=== PATIENT | female | born 1990 | race Hispanic/Latino ===

== ENCOUNTER 2017-04-06 04:21 | Emergency (ER) | payer MEDICAID ==
[~2017-04-06 04:21] MED LIST: birth control PO
[2017-04-06 04:46] LABS: APPEARANCE,URINE Clear (CLEAR); BILIRUBIN,URINE Negative (NEGATIVE); COLOR,URINE Yellow (YELLOW); GLUCOSE, URINE (UA) Negative (NEGATIVE); KETONES,URINE Negative (NEGATIVE); LEUKOCYTE ESTERASE ,URINE Negative (NEGATIVE); NITRATE,URINE Negative (NEGATIVE); OCCULT BLOOD,URINE Small (NEGATIVE); PH,URINE 5.5 (5.0-8.0); PROTEIN,URINE Negative (NEGATIVE)
[2017-04-06 04:52] LABS: BACTERIA,URINE None Seen /HPF (None Seen); MUCUS,URINE Few LPF (None Seen); SQUAMOUS EPITHELIAL CELL,UR Few /LPF (0-2); WBC,URINE None Seen /HPF (0-1)
[2017-04-06 04:54] LABS: EOSINOPHILS % (AUTO) 1.4 % (0.0-8.0); HEMATOCRIT 40.8 % (36-48); LYMPHOCYTES % (AUTO) 44.9 % (21.0-51.0); MEAN CORPUSCULAR HGB CONC 34.4 g/dL (32.0-36.0); MONOCYTES % (AUTO) 7.6 % (3.0-13.0); NEUTROPHILS % (AUTO) 45.1 % (40.0-77.0); PLATELET COUNT (AUTO) 359 K/uL (130-400); RED BLOOD CELL COUNT(AUTO) 4.54 MIL/uL (4.00-5.50); RED CELL DISTRIBUTION WIDTH 13.3 % (11.0-15.5); WHITE BLOOD COUNT (AUTO) 10.3 K/uL (4.8-10.8)
[2017-04-06 05:03] LABS: CREATININE 0.7 mg/dL (0.5-1.5); POTASSIUM 3.7 mmol/L (3.5-5.1)
[2017-04-06 05:08] LABS: ALBUMIN 3.4 g/dL (3.5-5.0); BILIRUBIN,TOTAL 0.2 mg/dL (0.2-1.0); TOTAL PROTEIN, SERUM 7.5 g/dL (6.0-8.3)
== END 2017-04-06 05:38 | disposition home or self-care (01) ==
LOC: EDH 04:21
DX: R10.33 Periumbilical pain (principal)
CPT/HCPCS: 36415; 80053; 81001; 81025; 83690; 85025

== ENCOUNTER 2018-04-03 21:04 | Emergency (ER) | payer MEDICAID, OTHER | END 2018-04-03 21:25 | disposition home or self-care (01) | LOC: EDH 21:04 | DX: J06.9 Acute upper respiratory infection, unspecified (principal) | CPT/HCPCS: 99281 ==

== ENCOUNTER 2018-11-30 08:29 | Emergency (ER) | payer MEDICAID ==
[2018-11-30 09:18] LABS: APPEARANCE,URINE Cloudy (CLEAR); BILIRUBIN,URINE Negative (NEGATIVE); COLOR,URINE Yellow (YELLOW); GLUCOSE, URINE (UA) Negative (NEGATIVE); KETONES,URINE Negative (NEGATIVE); LEUKOCYTE ESTERASE ,URINE Negative (NEGATIVE); NITRATE,URINE Negative (NEGATIVE); OCCULT BLOOD,URINE Negative (NEGATIVE); PH,URINE 6.5 (5.0-8.0); PROTEIN,URINE Negative (NEGATIVE); UROBILINOGEN,URINE 0.2 mg/dL (0.2-1.0)
[2018-11-30 09:30] LABS: BACTERIA,URINE Moderate /HPF (None Seen); RBC,URINE 0-1 /HPF (0-1); WBC,URINE 0-1 /HPF (0-1)
[2018-11-30 09:32] LABS: BASOPHILS % (AUTO) 1.2 % (0.0-5.0); EOSINOPHILS % (AUTO) 0.9 % (0.0-8.0); HEMATOCRIT 41.6 % (36-48); LYMPHOCYTES % (AUTO) 35.4 % (21.0-51.0); MEAN CORPUSCULAR HEMOGLOBIN 31.4 pg (27.0-33.0); MEAN CORPUSCULAR HGB CONC 34.7 g/dL (32.0-36.0); MEAN CORPUSCULAR VOLUME 90.6 fL (79-99); MONOCYTES % (AUTO) 5.7 % (3.0-13.0); NEUTROPHILS % (AUTO) 56.8 % (40.0-77.0); NUCLEATED RED BLOOD CELLS 0.1 % (0.0-0.19); PLATELET COUNT (AUTO) 321 K/uL (130-400); RED CELL DISTRIBUTION WIDTH 12.9 % (11.0-15.5); WHITE BLOOD COUNT (AUTO) 8.1 K/uL (4.8-10.8)
[2018-11-30 09:38] LABS: CREATININE 0.6 mg/dL (0.5-1.5)
[2018-11-30 09:47] LABS: ALBUMIN 3.6 g/dL (3.5-5.0); BILIRUBIN,TOTAL 0.4 mg/dL (0.2-1.0); TOTAL PROTEIN, SERUM 7.7 g/dL (6.0-8.3)
[2018-11-30] MEDS ORDERED: NAPROXEN 500 MG TABLET ONE (10:21)
[2018-11-30] MEDS ORDERED: CEFTRIAXONE SODIUM 500 MG VIAL ONE ×2 (10:49→10:53)
[2018-11-30] MEDS ORDERED: AZITHROMYCIN 250 MG TABLET PO ONE (10:49)
[2018-11-30] MEDS ORDERED: LIDOCAINE HCL-MPF 1% 2ML VIAL ONE (10:53)
== END 2018-11-30 11:10 | disposition home or self-care (01) ==
LOC: EDH 08:29
DX: N91.2 Amenorrhea, unspecified (principal); R10.2 Pelvic and perineal pain; R03.0 Elevated blood-pressure reading, without diagnosis of hypertension
CPT/HCPCS: 36415; 76856; 80053; 81001; 81025; 85025; 87486; 87797; 96372; 99285; J0696 ×2; J3490

== ENCOUNTER 2019-09-21 19:35 | Emergency (ER) | payer MEDICAID ==
[2019-09-21] MEDS ORDERED: ONDANSETRON HCL 4 MG/2 ML VIAL ONE (19:47)
[2019-09-21 20:00] LABS: APPEARANCE,URINE Clear (CLEAR); BILIRUBIN,URINE Negative (NEGATIVE); COLOR,URINE Yellow (YELLOW); GLUCOSE, URINE (UA) Negative (NEGATIVE); KETONES,URINE Negative (NEGATIVE); LEUKOCYTE ESTERASE ,URINE Negative (NEGATIVE); NITRATE,URINE Negative (NEGATIVE); OCCULT BLOOD,URINE Nonhemolyzed Trace (NEGATIVE); PROTEIN,URINE Negative (NEGATIVE); UROBILINOGEN,URINE 0.2 mg/dL (0.2-1.0)
[2019-09-21 20:02] LABS: BASOPHILS % (AUTO) 0.3 % (0.0-5.0); EOSINOPHILS % (AUTO) 0.9 % (0.0-8.0); HEMATOCRIT 42.1 % (36-48); LYMPHOCYTES % (AUTO) 36.5 % (21.0-51.0); MEAN CORPUSCULAR HEMOGLOBIN 30.3 pg (27.0-33.0); MEAN CORPUSCULAR HGB CONC 34.2 g/dL (32.0-36.0); MEAN CORPUSCULAR VOLUME 88.6 fL (79-99); MONOCYTES % (AUTO) 6.5 % (3.0-13.0); NEUTROPHILS % (AUTO) 55.5 % (40.0-77.0); PLATELET COUNT (AUTO) 354 K/uL (130-400); RED BLOOD CELL COUNT(AUTO) 4.75 MIL/uL (4.00-5.50); RED CELL DISTRIBUTION WIDTH 12.5 % (11.0-15.5); WHITE BLOOD COUNT (AUTO) 11.8 K/uL (4.8-10.8)
[2019-09-21 20:03] LABS: HCG,QUAL RESULT NEGATIVE (NEGATIVE)
[2019-09-21 20:12] LABS: CREATININE 0.9 mg/dL (0.5-1.5); POTASSIUM 3.2 mmol/L (3.5-5.1)
[2019-09-21 20:16] LABS: ALBUMIN 3.8 g/dL (3.5-5.0); BILIRUBIN,TOTAL 0.3 mg/dL (0.2-1.0); TOTAL PROTEIN, SERUM 8.1 g/dL (6.0-8.3)
[2019-09-21 20:16] LABS: BACTERIA,URINE Few /HPF (None Seen); SQUAMOUS EPITHELIAL CELL,UR 0-2 /HPF (0-2); WBC,URINE 0-1 /HPF (0-1)
[2019-09-21] MEDS ORDERED: POTASSIUM BICARB/CIT AC 25 MEQ TABLET.EFF ONE (20:19)
[2019-09-21] MEDS ORDERED: LEVOFLOXACIN 500 MG TABLET ONE (22:12)
== END 2019-09-21 22:21 | disposition home or self-care (01) ==
LOC: EDH 19:35
DX: K52.9 Noninfective gastroenteritis and colitis, unspecified (principal)
CPT/HCPCS: 36415; 74176; 80053; 81001; 81025; 83690; 85025; 87088; 96361; 96374; 99284; J2405

== ENCOUNTER 2020-04-24 16:10 | Emergency (ER) | payer MEDICAID ==
[2020-04-24 17:16] LABS: BASOPHILS % (AUTO) 0.8 % (0.0-5.0); EOSINOPHILS % (AUTO) 0.5 % (0.0-8.0); HEMATOCRIT 41.8 % (36-48); LYMPHOCYTES % (AUTO) 36.8 % (21.0-51.0); MEAN CORPUSCULAR HEMOGLOBIN 30.9 pg (27.0-33.0); MEAN CORPUSCULAR VOLUME 91.1 fL (79-99); MONOCYTES % (AUTO) 6.8 % (3.0-13.0); PLATELET COUNT (AUTO) 312 K/uL (130-400); RED BLOOD CELL COUNT(AUTO) 4.59 MIL/uL (4.00-5.50); RED CELL DISTRIBUTION WIDTH 12.9 % (11.0-15.5); WHITE BLOOD COUNT (AUTO) 9.2 K/uL (4.8-10.8)
[2020-04-24] MEDS ORDERED: LIDOCAINE HCL 2% VISCOUS 15 ML UDCUP ONE (17:22)
[2020-04-24] MEDS ORDERED: MAG HYDROX/AL HYDROX/SIMETH ES 30 ML SUSP UDCUP ONE (17:22)
[2020-04-24 17:29] LABS: AMPHET/METH SCREEN,URINE NEGATIVE (NEGATIVE); BARBITURATE SCREEN, URINE NEGATIVE (NEGATIVE); BENZODIAZEPINES SCREEN,URINE NEGATIVE (NEGATIVE); CANNABINOID SCREEN,URINE NEGATIVE (NEGATIVE); COCAINE SCREEN,URINE NEGATIVE (NEGATIVE); OPIATE SCREEN,URINE NEGATIVE (NEGATIVE); PHENCYCLIDINE SCREEN,URINE NEGATIVE (NEGATIVE)
[2020-04-24 17:42] LABS: CREATININE 0.6 mg/dL (0.5-1.5); POTASSIUM 3.5 mmol/L (3.5-5.1)
[2020-04-24 17:47] LABS: ALBUMIN 3.9 g/dL (3.5-5.0); BILIRUBIN,TOTAL 0.4 mg/dL (0.2-1.0); TOTAL PROTEIN, SERUM 7.5 g/dL (6.0-8.3)
== END 2020-04-24 19:01 | disposition home or self-care (01) ==
LOC: EDH 16:10
DX: K29.00 Acute gastritis without bleeding (principal); K20.90 Esophagitis, unspecified without bleeding; Z20.822 Contact with and (suspected) exposure to COVID-19
CPT/HCPCS: 36415; 71045; 80053; 80305; 82607; 82746; 83540; 85025; 87426; 93005; 99285; U0003

== ENCOUNTER 2020-07-14 15:29 | Emergency (ER) | payer MEDICAID ==
[~2020-07-14] VITALS: Ht 162.6 cm; Wt 76.2 kg
[2020-07-14 16:06] LABS: BASOPHILS % (AUTO) 0.3 % (0.0-5.0); EOSINOPHILS % (AUTO) 0.6 % (0.0-8.0); HEMATOCRIT 40.6 % (36-48); LYMPHOCYTES % (AUTO) 27.4 % (21.0-51.0); MEAN CORPUSCULAR HGB CONC 34.2 g/dL (32.0-36.0); MEAN CORPUSCULAR VOLUME 90.4 fL (79-99); MONOCYTES % (AUTO) 3.1 % (3.0-13.0); NEUTROPHILS % (AUTO) 68.3 % (40.0-77.0); PLATELET COUNT (AUTO) 294 K/uL (130-400); RED BLOOD CELL COUNT(AUTO) 4.49 MIL/uL (4.00-5.50); RED CELL DISTRIBUTION WIDTH 12.3 % (11.0-15.5); WHITE BLOOD COUNT (AUTO) 9.2 K/uL (4.8-10.8)
[2020-07-14] MEDS ORDERED: FAMOTIDINE/PF 20 MG/2 ML VIAL IV ONE (16:15)
[2020-07-14] MEDS ORDERED: MORPHINE 2 MG SYG (2MG/1ML) IVP ONE (16:15)
[2020-07-14] MEDS ORDERED: KETOROLAC 30MG VIAL (30MG/ML) IVP ONE (16:15)
[2020-07-14] MEDS ORDERED: LACTATED RINGERS 1000ML 1,000 ML IV ONE (16:15)
[2020-07-14] MEDS ORDERED: ONDANSETRON HCL 4 MG/2 ML VIAL IVP ONE (16:15)
[2020-07-14 16:22] LABS: ALBUMIN 3.6 g/dL (3.5-5.0); BILIRUBIN,TOTAL 0.3 mg/dL (0.2-1.0); CREATININE 0.7 mg/dL (0.5-1.5); TOTAL PROTEIN, SERUM 7.2 g/dL (6.0-8.3)
[2020-07-14 16:24] LABS: POTASSIUM 2.9 mmol/L (3.5-5.1)
[2020-07-14 16:43] LABS: APPEARANCE,URINE Clear (CLEAR); BILIRUBIN,URINE Negative (NEGATIVE); COLOR,URINE Yellow (YELLOW); GLUCOSE, URINE (UA) Negative (NEGATIVE); KETONES,URINE >=80 mg/dL (NEGATIVE); LEUKOCYTE ESTERASE ,URINE Negative (NEGATIVE); NITRATE,URINE Negative (NEGATIVE); OCCULT BLOOD,URINE Negative (NEGATIVE); PH,URINE 6.5 (5.0-8.0); PROTEIN,URINE Negative (NEGATIVE)
[2020-07-14 16:45] LABS: HCG,QUAL RESULT POSITIVE (NEGATIVE)
[2020-07-14 17:11] LABS: RBC,URINE 0-1 /HPF (0-1); WBC,URINE 0-1 /HPF (0-1)
[2020-07-14 17:12] LABS: BACTERIA,URINE Few /HPF (None Seen); MUCUS,URINE Moderate LPF (None Seen); SQUAMOUS EPITHELIAL CELL,UR Few /HPF (0-2)
[2020-07-14] MEDS ORDERED: LIDOCAINE HCL-MPF 1% 2ML VIAL IV SCH (17:15)
[2020-07-14] MEDS ORDERED: HYDROMORPHONE 1MG AMP (1MG/ML) IVP PRN (17:15)
[2020-07-14] MEDS: POTASSIUM CHLORIDE 20MEQ/100ML 100 ML IV SCH ×2 (17:31→18:29)
[2020-07-14] MEDS ORDERED: POTASSIUM BICARB/CIT AC 25 MEQ TABLET.EFF PO SCH ×2 (18:45→19:15)
[2020-07-14 19:30] VITALS: BP 122/78
[2020-07-15] MEDS ORDERED: NICOTINE 14 MG/ 24 HR PATCH TD SCH (09:00)
[2020-07-15] MEDS ORDERED: ACET1TAB25 PO (23:30)
== END 2020-07-14 20:40 | disposition home or self-care (01) ==
LOC: EDH 15:29
DX: O26.611 Liver and biliary tract disorders in pregnancy, first trimester (principal); K80.20 Calculus of gallbladder without cholecystitis without obstruction; O26.891 Other specified pregnancy related conditions, first trimester; O21.9 Vomiting of pregnancy, unspecified; O99.281 Endocrine, nutritional and metabolic diseases complicating pregnancy, first trimester; E87.6 Hypokalemia; Z3A.01 Less than 8 weeks gestation of pregnancy; Z98.84 Bariatric surgery status
CPT/HCPCS: 36415; 76705 ×2; 76801; 80053; 81001; 81003; 81025; 82150; 83690; 84484; 84702; 85025; 96361; 96365; 96366; 96375 ×2; 99285; J1885; J2405; J3480; J3490 ×2; J7120

== ENCOUNTER 2020-07-15 14:44 | Observation (INO) | payer MEDICAID ==
[~2020-07-15] VITALS: Ht 162.6 cm; Wt 67.1 kg
[2020-07-15 15:01] VITALS: BP 126/69
[2020-07-15] MEDS ORDERED: MORPHINE 4 MG SYG IV SCH ×2 (15:15→17:45)
[2020-07-15] MEDS ORDERED: ONDANSETRON 4MG INJ IVP SCH ×2 (15:15→19:30)
[2020-07-15] MEDS ORDERED: LACTATED RINGERS 1000ML 1,000 ML IV SCH (15:15)
[2020-07-15 15:26] LABS: BASOPHILS % (AUTO) 0.3 % (0.0-5.0); EOSINOPHILS % (AUTO) 0.3 % (0.0-8.0); HEMATOCRIT 37.2 % (36-48); LYMPHOCYTES % (AUTO) 24.3 % (21.0-51.0); MEAN CORPUSCULAR HEMOGLOBIN 31.1 pg (27.0-33.0); MEAN CORPUSCULAR HGB CONC 33.6 g/dL (32.0-36.0); MEAN CORPUSCULAR VOLUME 92.5 fL (79-99); MONOCYTES % (AUTO) 7.4 % (3.0-13.0); NEUTROPHILS % (AUTO) 67.4 % (40.0-77.0); PLATELET COUNT (AUTO) 282 K/uL (130-400); RED BLOOD CELL COUNT(AUTO) 4.02 MIL/uL (4.00-5.50); RED CELL DISTRIBUTION WIDTH 12.6 % (11.0-15.5)
[2020-07-15 15:39] LABS: CREATININE 0.7 mg/dL (0.5-1.5); POTASSIUM 3.6 mmol/L (3.5-5.1)
[2020-07-15 16:04] LABS: ALBUMIN 3.5 g/dL (3.5-5.0); BILIRUBIN,TOTAL 0.6 mg/dL (0.2-1.0); TOTAL PROTEIN, SERUM 7.1 g/dL (6.0-8.3)
[2020-07-15 16:23] VITALS: BP 127/82
[2020-07-15] MEDS ORDERED: ONDANSETRON 4MG INJ IV PRN (18:45)
[2020-07-15] MEDS ORDERED: MORPHINE 2 MG SYG IV ONE (19:45)
[2020-07-15 20:01] VITALS: BP 115/66
[2020-07-15] MEDS ORDERED: MORPHINE 2 MG SYG IVP ONE (21:00)
[2020-07-15 22:18] VITALS: BP 112/74
[2020-07-15 23:21] LABS: APPEARANCE,URINE CLEAR (CLEAR); BILIRUBIN,URINE SMALL (NEGATIVE); COLOR,URINE YELLOW (YELLOW); GLUCOSE, URINE (UA) NEGATIVE (NEGATIVE); KETONES,URINE >=80 mg/dL (NEGATIVE); LEUKOCYTE ESTERASE ,URINE NEGATIVE (NEGATIVE); NITRATE,URINE NEGATIVE (NEGATIVE); OCCULT BLOOD,URINE NEGATIVE (NEGATIVE); PROTEIN,URINE NEGATIVE (NEGATIVE)
[2020-07-15] MEDS ORDERED: ACET1TAB25 PO (23:30)
[2020-07-15 23:31] LABS: BACTERIA,URINE None Seen /HPF (None Seen); RBC,URINE None Seen /HPF (0-1); SQUAMOUS EPITHELIAL CELL,UR Moderate /HPF (0-2); WBC,URINE None Seen /HPF (0-1)
[2020-07-16] VITALS (25 sets, daily range): BP systolic 92–131; BP diastolic 48–110
[2020-07-16] MEDS ORDERED: PREN1TAB26 PO (01:17)
[2020-07-16] MEDS ORDERED: PREN1TAB80 PO (01:17)
[2020-07-16] MEDS: MORPHINE 2 MG SYG IVP PRN ×2 (02:30→05:16)
[2020-07-16] MEDS: 0.9%NACL 1000ML 1,000 ML IV SCH ×2 (02:31→19:03)
[2020-07-16 04:06] LABS: BASOPHILS % (AUTO) 0.3 % (0.0-5.0); EOSINOPHILS % (AUTO) 0.3 % (0.0-8.0); HEMATOCRIT 34.5 % (36-48); LYMPHOCYTES % (AUTO) 16.1 % (21.0-51.0); MEAN CORPUSCULAR HEMOGLOBIN 30.9 pg (27.0-33.0); MEAN CORPUSCULAR HGB CONC 33.9 g/dL (32.0-36.0); MONOCYTES % (AUTO) 8.9 % (3.0-13.0); PLATELET COUNT (AUTO) 259 K/uL (130-400); RED BLOOD CELL COUNT(AUTO) 3.79 MIL/uL (4.00-5.50); RED CELL DISTRIBUTION WIDTH 12.4 % (11.0-15.5); WHITE BLOOD COUNT (AUTO) 11.2 K/uL (4.8-10.8)
[2020-07-16 04:20] LABS: CREATININE 0.6 mg/dL (0.5-1.5); POTASSIUM 3.4 mmol/L (3.5-5.1)
[2020-07-16] MEDS ORDERED: MORPHINE 4 MG SYG IM ONE (05:15)
[2020-07-16] MEDS ORDERED: ACETAMINOPHEN 325 MG TAB ONE (10:25)
[2020-07-16 10:50] LABS: INR 1.17 (0.85-1.15); PROTHROMBIN TIME 12.6 SEC (9.6-11.6)
[2020-07-16 10:51] LABS: PARTIAL THROMBOPLASTIN TIME 28.8 SEC (26.3-35.5)
[2020-07-16] MEDS ORDERED: ZOSYN 3.375GM+NS 50ML 50 ML IV ONE (10:58)
[2020-07-16] MEDS: ZOSYN 3.375GM+NS 50ML 50 ML IV SCH ×2 (11:06→19:03)
[2020-07-16] MEDS ORDERED: BUPIVACAINE/PF 0.5% 30ML VIAL ONE (13:49)
[2020-07-16] MEDS ORDERED: LACTATED RINGERS 1000ML 1,000 ML IV ONE (14:00)
[2020-07-16] MEDS ORDERED: LIDOCAINE HCL-MPF 1% 5ML AMP IJ ONE (16:24)
[2020-07-16] MEDS ORDERED: FENTANYL CITRATE PF 50 MCG/1 ML 2ML VIAL ONE (16:24)
[2020-07-16] MEDS ORDERED: PROPOFOL 10 MG/ML 20ML VIAL IV ONE (16:24)
[2020-07-16] MEDS ORDERED: ROCURONIUM 10MG/1ML SYR 10 MG/ML ML ONE (16:24)
[2020-07-16] MEDS ORDERED: MEPERIDINE-PF 25 MG/ML SYG ONE (18:13)
[2020-07-16] MEDS ORDERED: MORPHINE 4 MG SYG IV PRN (19:00)
[2020-07-16] MEDS: SIMETHICONE 80 MG TAB.CHEW PO PRN (20:50)
[2020-07-16] MEDS: ACETAMINOPHEN WITH CODEINE 1 TAB TAB PO PRN (23:42)
[2020-07-17] MEDS: 0.9%NACL 1000ML 1,000 ML IV SCH ×3 (00:45→16:15)
[2020-07-17] MEDS: ACETAMINOPHEN 325 MG TAB PO PRN ×2 (01:45→16:09)
[2020-07-17] MEDS: SIMETHICONE 80 MG TAB.CHEW PO PRN ×4 (02:59→21:40)
[2020-07-17 03:02] VITALS: BP 115/75
[2020-07-17 05:29] LABS: BASOPHILS % (AUTO) 0.3 % (0.0-5.0); EOSINOPHILS % (AUTO) 0.2 % (0.0-8.0); HEMATOCRIT 35.2 % (36-48); LYMPHOCYTES % (AUTO) 21.1 % (21.0-51.0); MEAN CORPUSCULAR HEMOGLOBIN 30.9 pg (27.0-33.0); MEAN CORPUSCULAR HGB CONC 33.8 g/dL (32.0-36.0); MEAN CORPUSCULAR VOLUME 91.4 fL (79-99); MONOCYTES % (AUTO) 7.6 % (3.0-13.0); NEUTROPHILS % (AUTO) 70.4 % (40.0-77.0); PLATELET COUNT (AUTO) 284 K/uL (130-400); RED BLOOD CELL COUNT(AUTO) 3.85 MIL/uL (4.00-5.50); RED CELL DISTRIBUTION WIDTH 12.3 % (11.0-15.5); WHITE BLOOD COUNT (AUTO) 10.7 K/uL (4.8-10.8)
[2020-07-17] MEDS: ZOSYN 3.375GM+NS 50ML 50 ML IV SCH ×3 (05:47→21:13)
[2020-07-17 06:07] LABS: CREATININE 0.6 mg/dL (0.5-1.5); POTASSIUM 3.6 mmol/L (3.5-5.1)
[2020-07-17] MEDS ORDERED: MAG/ALUM/SIMETH 30 ML UDCUP PO PRN (06:15)
[2020-07-17] MEDS: ACETAMINOPHEN WITH CODEINE 1 TAB TAB PO PRN ×2 (06:31→22:05)
[2020-07-17 07:17] VITALS: BP 115/73
[2020-07-17] MEDS: FAMOTIDINE 20MG TAB PO SCH (09:22)
[2020-07-17 11:26] VITALS: BP 108/64
[2020-07-17 16:28] VITALS: BP 119/73
[2020-07-17 20:00] VITALS: BP 110/68
[2020-07-17 23:33] VITALS: BP 105/68
[2020-07-18] VITALS (7 sets, daily range): BP systolic 103–111; BP diastolic 63–73
[2020-07-18] MEDS: ZOSYN 3.375GM+NS 50ML 50 ML IV SCH ×2 (05:09→12:10)
[2020-07-18] MEDS: FAMOTIDINE 20MG TAB PO SCH (08:42)
[2020-07-18] MEDS: SIMETHICONE 80 MG TAB.CHEW PO PRN (08:42)
[2020-07-18] MEDS: ACETAMINOPHEN WITH CODEINE 1 TAB TAB PO PRN (08:56)
[2020-08-27] MEDS ORDERED: PREN1TAB63 PO (16:03)
== END 2020-07-18 18:45 | disposition home or self-care (01) ==
LOC: EDH 14:44 → EDHIP 14:45 → WSH 22:12
PROVIDERS: ADMIT Family Medicine; ATTEND Family Medicine
DX: K35.80 Unspecified acute appendicitis (principal); O26.611 Liver and biliary tract disorders in pregnancy, first trimester; O99.611 Diseases of the digestive system complicating pregnancy, first trimester; O99.841 Bariatric surgery status complicating pregnancy, first trimester; K80.20 Calculus of gallbladder without cholecystitis without obstruction; Z3A.01 Less than 8 weeks gestation of pregnancy
CPT/HCPCS: 36415 ×3; 44970; 74181 ×2; 80048 ×2; 80053; 81001; 84702 ×3; 85025 ×3; 85610; 85730; 86850; 86900; 86901; 88304; 96361 ×4; 96365; 96366 ×3; 96375; 96376 ×2; 99284; A4222; A4223; A4649 ×7; A6206; A6207; C1769 ×3; G0378 ×69; J2175; J2270 ×2; J2405 ×2; J2543 ×7; J3010; J3490 ×2; J7030 ×3; J7120 ×3; S0020; J2704

== ENCOUNTER 2020-07-24 14:48 | Emergency (ER) | payer MEDICAID ==
[~2020-07-24] VITALS: Ht 162.6 cm; Wt 65.3 kg
[~2020-07-24 14:48] MED LIST changes: +PREN1TAB26 PO; +PREN1TAB80 PO; -birth control PO
[2020-07-24] MEDS ORDERED: ONDANSETRON 4MG INJ ONE (15:42)
[2020-07-24] MEDS ORDERED: NACL 0.9% 1000ML 1,000 ML IV ONE (15:43)
[2020-07-24] MEDS ORDERED: ONDANSETRON 4MG INJ IVP ONE (15:45)
[2020-07-24] MEDS ORDERED: ACETAMINOPHEN 325 MG TAB PO ONE (15:45)
[2020-07-24 16:01] LABS: BASOPHILS % (AUTO) 0.6 % (0.0-5.0); EOSINOPHILS % (AUTO) 0.7 % (0.0-8.0); HEMATOCRIT 38.8 % (36-48); LYMPHOCYTES % (AUTO) 36.9 % (21.0-51.0); MEAN CORPUSCULAR HEMOGLOBIN 30.7 pg (27.0-33.0); MEAN CORPUSCULAR VOLUME 90.2 fL (79-99); MONOCYTES % (AUTO) 6.2 % (3.0-13.0); NEUTROPHILS % (AUTO) 55.3 % (40.0-77.0); PLATELET COUNT (AUTO) 447 K/uL (130-400); RED CELL DISTRIBUTION WIDTH 12.6 % (11.0-15.5); WHITE BLOOD COUNT (AUTO) 8.9 K/uL (4.8-10.8)
[2020-07-24 16:12] LABS: CREATININE 0.6 mg/dL (0.5-1.5); POTASSIUM 3.5 mmol/L (3.5-5.1)
[2020-07-24 16:38] LABS: ALBUMIN 3.7 g/dL (3.5-5.0); BILIRUBIN,TOTAL 0.3 mg/dL (0.2-1.0); TOTAL PROTEIN, SERUM 7.9 g/dL (6.0-8.3)
[2020-07-24 17:48] LABS: APPEARANCE,URINE Clear (CLEAR); BILIRUBIN,URINE Negative (NEGATIVE); COLOR,URINE Dark Yellow (YELLOW); GLUCOSE, URINE (UA) Negative (NEGATIVE); KETONES,URINE 15 mg/dL (NEGATIVE); LEUKOCYTE ESTERASE ,URINE Negative (NEGATIVE); NITRATE,URINE Negative (NEGATIVE); OCCULT BLOOD,URINE Negative (NEGATIVE); PROTEIN,URINE Negative (NEGATIVE)
[2020-07-24 17:53] LABS: BACTERIA,URINE Few /HPF (None Seen); MUCUS,URINE Moderate LPF (None Seen); RBC,URINE 0-1 /HPF (0-1); WBC,URINE 0-1 /HPF (0-1)
[2020-07-24 17:54] LABS: SQUAMOUS EPITHELIAL CELL,UR Few /HPF (0-2)
[2020-07-24] MEDS ORDERED: CEFTRIAXONE 1G VIAL IVP STA (18:00)
[2020-07-24] MEDS ORDERED: ONDA4TAB4 PO (18:11)
[2020-07-24] MEDS ORDERED: CEPH500B PO (18:11)
[2020-07-24] MEDS ORDERED: 0.9%NACL 100ML 100 ML ONE (18:18)
[2020-07-24 19:41] VITALS: BP 117/70
== END 2020-07-24 19:46 | disposition home or self-care (01) ==
LOC: EDH 14:48
DX: O23.41 Unspecified infection of urinary tract in pregnancy, first trimester (principal); O26.891 Other specified pregnancy related conditions, first trimester; R10.9 Unspecified abdominal pain; R19.7 Diarrhea, unspecified; Z3A.01 Less than 8 weeks gestation of pregnancy; Z79.899 Other long term (current) drug therapy
CPT/HCPCS: 36415; 76801; 80053; 81001; 81003; 83690; 84702; 85025; 96361; 96374; 96375; 99284; J0696; J2405; J7030

== ENCOUNTER 2020-08-28 06:23 | Day surgery (SDC) | payer MEDICAID ==
[2020-08-27 16:01] VITALS: BP 110/63
[2020-08-27 16:04] LABS: BASOPHILS % (AUTO) 0.6 % (0.0-5.0); EOSINOPHILS % (AUTO) 0.7 % (0.0-8.0); HEMATOCRIT 37.3 % (36-48); LYMPHOCYTES % (AUTO) 37.7 % (21.0-51.0); MONOCYTES % (AUTO) 6.7 % (3.0-13.0); NEUTROPHILS % (AUTO) 54.1 % (40.0-77.0); PLATELET COUNT (AUTO) 305 K/uL (130-400); RED CELL DISTRIBUTION WIDTH 12.6 % (11.0-15.5); WHITE BLOOD COUNT (AUTO) 8.4 K/uL (4.8-10.8)
[~2020-08-28] VITALS: Ht 162.6 cm; Wt 64.3 kg
[~2020-08-28 06:23] MED LIST changes: -PREN1TAB26 PO; +PREN1TAB63 PO; -PREN1TAB80 PO
[2020-08-28 06:40] VITALS: BP 111/66
[2020-08-28] MEDS ORDERED: PROPOFOL 10 MG/ML 20ML VIAL IV ONE (06:48)
[2020-08-28] MEDS ORDERED: LIDOCAINE PF 100MG/5ML (2%) SYRINGE 5ML ONE ×2 (06:48→07:39)
[2020-08-28] MEDS ORDERED: ROCURONIUM 10MG/1ML SYR 10 MG/ML ML ONE (06:48)
[2020-08-28] MEDS ORDERED: FENTANYL CITRATE PF 50 MCG/1 ML 2ML VIAL ONE ×2 (06:49)
[2020-08-28] MEDS ORDERED: MIDAZOLAM HCL 1 MG/ML 2ML VIAL ONE (06:49)
[2020-08-28] MEDS ORDERED: OXYTOCIN 10 USP UNITS/ML ONE (07:39)
[2020-08-28] MEDS ORDERED: LACTATED RINGERS 1000ML 1,000 ML IV SCH (08:00)
[2020-08-28] MEDS ORDERED: OXYTOCIN-LR 20 UNITS/1000 ML 1,000 ML IV ONE (08:12)
== END 2020-08-28 11:10 | disposition home or self-care (01) ==
LOC: DAH 06:23 → LDH 11:08 → DAH 11:10
PROVIDERS: ATTEND Specialist
DX: O02.1 Missed abortion (principal); Z20.822 Contact with and (suspected) exposure to COVID-19; E66.9 Obesity, unspecified; Z98.84 Bariatric surgery status; Z90.49 Acquired absence of other specified parts of digestive tract
CPT/HCPCS: 36415; 59820; 84703; 85025; 87635; A4215; A4221; A4222; A4223; A4510; A4600; A4663; A6260; C9803; J2250; J2590 ×2; J3010 ×2; J3490 ×3; J7120; G0378; J2001; J2704

== ENCOUNTER 2020-09-19 09:43 | Emergency (ER) | payer MEDICAID ==
[~2020-09-19] VITALS: Ht 162.6 cm; Wt 62.6 kg
[2020-09-19 09:45] VITALS: BP 120/62
[2020-09-19 10:22] LABS: BASOPHILS % (AUTO) 0.6 % (0.0-5.0); EOSINOPHILS % (AUTO) 1.3 % (0.0-8.0); LYMPHOCYTES % (AUTO) 40.2 % (21.0-51.0); MEAN CORPUSCULAR HEMOGLOBIN 30.7 pg (27.0-33.0); MEAN CORPUSCULAR HGB CONC 34.2 g/dL (32.0-36.0); MEAN CORPUSCULAR VOLUME 89.8 fL (79-99); MONOCYTES % (AUTO) 6.8 % (3.0-13.0); NEUTROPHILS % (AUTO) 50.9 % (40.0-77.0); PLATELET COUNT (AUTO) 294 K/uL (130-400); RED BLOOD CELL COUNT(AUTO) 4.23 MIL/uL (4.00-5.50); RED CELL DISTRIBUTION WIDTH 13.1 % (11.0-15.5); WHITE BLOOD COUNT (AUTO) 6.3 K/uL (4.8-10.8)
[2020-09-19 10:27] LABS: CREATININE 0.6 mg/dL (0.5-1.5)
[2020-09-19 10:31] LABS: ALBUMIN 3.7 g/dL (3.5-5.0); BILIRUBIN,TOTAL 0.4 mg/dL (0.2-1.0); TOTAL PROTEIN, SERUM 7.2 g/dL (6.0-8.3)
[2020-09-19] MEDS ORDERED: SOLU-MEDROL 125MG VIAL ONE (11:07)
[2020-09-19] MEDS ORDERED: KETOROLAC 15MG/ML VIAL (15MG/ML) ONE (11:08)
[2020-09-19] MEDS ORDERED: NAPR-1023 PO (11:12)
[2020-09-19 11:25] VITALS: BP 127/87
[2020-09-19] MEDS ORDERED: KETOROLAC 15MG/ML VIAL (15MG/ML) IV ONE (11:30)
[2020-09-19] MEDS ORDERED: SOLU-MEDROL 125MG VIAL IVP ONE (11:30)
== END 2020-09-19 11:26 | disposition home or self-care (01) ==
LOC: EDH 09:43
DX: M94.0 Chondrocostal junction syndrome [Tietze] (principal); Z79.1 Long term (current) use of non-steroidal anti-inflammatories (NSAID); Z79.52 Long term (current) use of systemic steroids; Z90.49 Acquired absence of other specified parts of digestive tract
CPT/HCPCS: 36415; 80053; 81025; 85025; 96374; 96375; 99284; J1885; J2930

== ENCOUNTER 2020-12-03 20:52 | Emergency (ER) | payer MEDICAID ==
[~2020-12-03] VITALS: Ht 162.6 cm; Wt 56.7 kg
[~2020-12-03 20:52] MED LIST changes: +NAPR-1023 PO
[2020-12-03] MEDS ORDERED: MORPHINE 4 MG SYG ONE (21:36)
[2020-12-03 21:38] LABS: BASOPHILS % (AUTO) 0.5 % (0.0-5.0); EOSINOPHILS % (AUTO) 0.4 % (0.0-8.0); LYMPHOCYTES % (AUTO) 44.5 % (21.0-51.0); MEAN CORPUSCULAR HEMOGLOBIN 30.7 pg (27.0-33.0); MEAN CORPUSCULAR HGB CONC 34.2 g/dL (32.0-36.0); MEAN CORPUSCULAR VOLUME 89.8 fL (79-99); MONOCYTES % (AUTO) 6.1 % (3.0-13.0); NEUTROPHILS % (AUTO) 48.3 % (40.0-77.0); PLATELET COUNT (AUTO) 300 K/uL (130-400); RED BLOOD CELL COUNT(AUTO) 4.23 MIL/uL (4.00-5.50); RED CELL DISTRIBUTION WIDTH 11.9 % (11.0-15.5); WHITE BLOOD COUNT (AUTO) 10.6 K/uL (4.8-10.8)
[2020-12-03 21:46] LABS: APPEARANCE,URINE Clear (CLEAR); BILIRUBIN,URINE Negative (NEGATIVE); COLOR,URINE Yellow (YELLOW); GLUCOSE, URINE (UA) Negative (NEGATIVE); KETONES,URINE 15 mg/dL (NEGATIVE); LEUKOCYTE ESTERASE ,URINE Negative (NEGATIVE); NITRATE,URINE Negative (NEGATIVE); OCCULT BLOOD,URINE Negative (NEGATIVE); PROTEIN,URINE Negative (NEGATIVE)
[2020-12-03 21:55] LABS: CREATININE 0.6 mg/dL (0.5-1.5); POTASSIUM 3.8 mmol/L (3.5-5.1)
[2020-12-03 22:04] LABS: ALBUMIN 3.8 g/dL (3.5-5.0); BILIRUBIN,TOTAL 0.3 mg/dL (0.2-1.0); TOTAL PROTEIN, SERUM 7.4 g/dL (6.0-8.3)
[2020-12-03] MEDS ORDERED: MORPHINE 2 MG SYG IVP ONE (22:30)
[2020-12-03] MEDS ORDERED: PROMETHAZINE HCL 25 MG/ML 1ML AMPULE IM ONE (22:30)
[2020-12-03] MEDS ORDERED: 0.9%NACL 1000ML 1,000 ML IV ONE (22:30)
[2020-12-03 23:15] VITALS: BP 112/78
== END 2020-12-03 23:24 | disposition home or self-care (01) ==
LOC: EDH 20:52
DX: O99.611 Diseases of the digestive system complicating pregnancy, first trimester (principal); A08.4 Viral intestinal infection, unspecified; Z79.1 Long term (current) use of non-steroidal anti-inflammatories (NSAID); Z79.899 Other long term (current) drug therapy; Z90.49 Acquired absence of other specified parts of digestive tract; Z3A.01 Less than 8 weeks gestation of pregnancy
CPT/HCPCS: 36415; 80053; 81003; 83690; 85025; 96361; 96372; 96374; 99284; J2270; J2550; J7030

== ENCOUNTER 2020-12-09 15:07 | Emergency (ER) | payer MEDICAID ==
[~2020-12-09] VITALS: Ht 162.6 cm; Wt 56.7 kg
[2020-12-09 15:52] LABS: APPEARANCE,URINE Clear (CLEAR); BILIRUBIN,URINE Negative (NEGATIVE); COLOR,URINE Yellow (YELLOW); GLUCOSE, URINE (UA) Negative (NEGATIVE); KETONES,URINE Trace mg/dL (NEGATIVE); LEUKOCYTE ESTERASE ,URINE Negative (NEGATIVE); NITRATE,URINE Negative (NEGATIVE); OCCULT BLOOD,URINE Negative (NEGATIVE); PROTEIN,URINE Negative (NEGATIVE); UROBILINOGEN,URINE 0.2 mg/dL (0.2-1.0)
[2020-12-09] MEDS ORDERED: 0.9%NACL 1000ML 1,000 ML IV ONE (16:30)
[2020-12-09 16:42] LABS: BASOPHILS % (AUTO) 0.4 % (0.0-5.0); EOSINOPHILS % (AUTO) 0.1 % (0.0-8.0); HEMATOCRIT 36.9 % (36-48); LYMPHOCYTES % (AUTO) 25.3 % (21.0-51.0); MEAN CORPUSCULAR HEMOGLOBIN 31.1 pg (27.0-33.0); MEAN CORPUSCULAR HGB CONC 34.7 g/dL (32.0-36.0); MEAN CORPUSCULAR VOLUME 89.8 fL (79-99); MONOCYTES % (AUTO) 4.8 % (3.0-13.0); NEUTROPHILS % (AUTO) 69.1 % (40.0-77.0); PLATELET COUNT (AUTO) 300 K/uL (130-400); RED BLOOD CELL COUNT(AUTO) 4.11 MIL/uL (4.00-5.50); RED CELL DISTRIBUTION WIDTH 11.9 % (11.0-15.5); WHITE BLOOD COUNT (AUTO) 9.3 K/uL (4.8-10.8)
[2020-12-09 16:53] LABS: CREATININE 0.6 mg/dL (0.5-1.5); POTASSIUM 3.8 mmol/L (3.5-5.1)
[2020-12-09 16:58] LABS: ALBUMIN 3.7 g/dL (3.5-5.0); BILIRUBIN,TOTAL 0.2 mg/dL (0.2-1.0); TOTAL PROTEIN, SERUM 7.1 g/dL (6.0-8.3)
[2020-12-09 19:27] VITALS: BP 104/66
== END 2020-12-09 19:34 | disposition home or self-care (01) ==
LOC: EDH 15:07
DX: O26.91 Pregnancy related conditions, unspecified, first trimester (principal); R55 Syncope and collapse; R42 Dizziness and giddiness; R10.9 Unspecified abdominal pain; O21.9 Vomiting of pregnancy, unspecified; Z90.49 Acquired absence of other specified parts of digestive tract; Z3A.01 Less than 8 weeks gestation of pregnancy
CPT/HCPCS: 36415; 76801; 80053; 81003; 84702; 85025; 86850; 86900; 86901; 93005; 96360; 99285; J7030

== ENCOUNTER 2021-02-26 15:30 | Emergency (ER) | payer MEDICAID ==
[~2021-02-26] VITALS: Ht 162.6 cm; Wt 54.4 kg
[2021-02-26 15:32] VITALS: BP 112/70
== END 2021-02-26 17:39 | disposition home or self-care (01) ==
LOC: EDH 15:30
DX: Z20.822 Contact with and (suspected) exposure to COVID-19 (principal); Z53.21 Procedure and treatment not carried out due to patient leaving prior to being seen by health care provider
CPT/HCPCS: 87635; 87804 ×2; C9803

== ENCOUNTER 2021-04-18 02:51 | Observation (INO) | payer MEDICAID ==
[~2021-04-18] VITALS: Ht 162.6 cm; Wt 58.5 kg
[2021-04-18 03:37] LABS: APPEARANCE,URINE CLEAR (CLEAR); BILIRUBIN,URINE NEGATIVE (NEGATIVE); COLOR,URINE YELLOW (YELLOW); GLUCOSE, URINE (UA) NEGATIVE (NEGATIVE); KETONES,URINE NEGATIVE (NEGATIVE); LEUKOCYTE ESTERASE ,URINE NEGATIVE (NEGATIVE); NITRATE,URINE NEGATIVE (NEGATIVE); OCCULT BLOOD,URINE NEGATIVE (NEGATIVE); PH,URINE 6.5 (5.0-8.0); PROTEIN,URINE NEGATIVE (NEGATIVE); UROBILINOGEN,URINE 0.2 mg/dL (0.2-1.0)
[2021-04-18 03:45] LABS: AMPHET/METH SCREEN,URINE NEGATIVE (NEGATIVE); BARBITURATE SCREEN, URINE NEGATIVE (NEGATIVE); BENZODIAZEPINES SCREEN,URINE NEGATIVE (NEGATIVE); CANNABINOID SCREEN,URINE NEGATIVE (NEGATIVE); COCAINE SCREEN,URINE NEGATIVE (NEGATIVE); OPIATE SCREEN,URINE NEGATIVE (NEGATIVE); PHENCYCLIDINE SCREEN,URINE NEGATIVE (NEGATIVE)
[2021-04-18] MEDS ORDERED: LACTATED RINGERS 1000ML 1,000 ML IV SCH (04:30)
[2021-04-18] MEDS ORDERED: MORPHINE 2 MG SYG IVP ONE (04:30)
[2021-04-18 06:28] VITALS: BP 87/53
== END 2021-04-18 06:55 | disposition home or self-care (01) ==
LOC: EDH 02:51 → LDH 02:52
PROVIDERS: ADMIT Internal Medicine; ATTEND Internal Medicine
DX: O26.892 Other specified pregnancy related conditions, second trimester (principal); R10.11 Right upper quadrant pain; Z3A.25 25 weeks gestation of pregnancy
CPT/HCPCS: 80305; 81003; 96361; 96374; G0378 ×4; G0379; 96360

== ENCOUNTER 2021-08-09 23:40 | Emergency (ER) | payer MEDICAID ==
[2021-08-10 00:38] LABS: APPEARANCE,URINE Clear (CLEAR); BILIRUBIN,URINE Negative (NEGATIVE); COLOR,URINE Yellow (YELLOW); GLUCOSE, URINE (UA) Negative (NEGATIVE); KETONES,URINE Negative (NEGATIVE); LEUKOCYTE ESTERASE ,URINE Small (NEGATIVE); NITRATE,URINE Negative (NEGATIVE); OCCULT BLOOD,URINE Negative (NEGATIVE); PH,URINE 6.5 (5.0-8.0); PROTEIN,URINE Negative (NEGATIVE); UROBILINOGEN,URINE 0.2 mg/dL (0.2-1.0)
[2021-08-10 00:54] LABS: BACTERIA,URINE Rare /HPF (None Seen); RBC,URINE None Seen /HPF (0-1)
[2021-08-10 00:57] LABS: BASOPHILS % (AUTO) 0.5 % (0.0-5.0); EOSINOPHILS % (AUTO) 0.4 % (0.0-8.0); HEMATOCRIT 36.7 % (36-48); LYMPHOCYTES % (AUTO) 31.8 % (21.0-51.0); MEAN CORPUSCULAR HEMOGLOBIN 30.7 pg (27.0-33.0); MEAN CORPUSCULAR HGB CONC 33.5 g/dL (32.0-36.0); MEAN CORPUSCULAR VOLUME 91.5 fL (79-99); MONOCYTES % (AUTO) 6.2 % (3.0-13.0); NEUTROPHILS % (AUTO) 60.9 % (40.0-77.0); PLATELET COUNT (AUTO) 218 K/uL (130-400); RED BLOOD CELL COUNT(AUTO) 4.01 MIL/uL (4.00-5.50); RED CELL DISTRIBUTION WIDTH 12.1 % (11.0-15.5); WHITE BLOOD COUNT (AUTO) 8.1 K/uL (4.8-10.8)
[2021-08-10 01:10] LABS: CREATININE 0.5 mg/dL (0.5-1.5); POTASSIUM 3.6 mmol/L (3.5-5.1)
[2021-08-10 01:13] LABS: ALBUMIN 3.3 g/dL (3.5-5.0); BILIRUBIN,TOTAL 0.3 mg/dL (0.2-1.0); TOTAL PROTEIN, SERUM 6.4 g/dL (6.0-8.3)
[2021-08-10] MEDS ORDERED: LOPE2CAP PO (04:10)
[2021-08-10 04:18] VITALS: BP 110/78
== END 2021-08-10 04:18 | disposition home or self-care (01) ==
LOC: EDH 23:40
DX: E86.0 Dehydration (principal); R19.7 Diarrhea, unspecified; Z20.822 Contact with and (suspected) exposure to COVID-19; Z79.899 Other long term (current) drug therapy; Z90.89 Acquired absence of other organs; Z98.890 Other specified postprocedural states
CPT/HCPCS: 36415; 80053; 81001; 85025; 87635; 99283; C9803

== ENCOUNTER → 2022-09-09 | Emergency (ER) | payer MEDICAID ==
[~2022-09-09] VITALS: Ht 162.6 cm; Wt 54.4 kg
[~2022-09-09] MED LIST changes: +0.9%NACL 1000ML 1,000 ML IV ONE; +KETOROLAC 15MG/ML VIAL (15MG/ML) IV ONE; +LOPE2CAP PO
[2022-09-09 12:57] VITALS: BP 120/84; PULSE 65; RESP 18
[2022-09-09 13:38] LABS: HCG,QUALITATIVE URINE NEGATIVE (NEGATIVE)
[2022-09-09 13:42] LABS: AMPHET/METH SCREEN,URINE NEGATIVE (NEGATIVE); BARBITURATE SCREEN, URINE NEGATIVE (NEGATIVE); BENZODIAZEPINES SCREEN,URINE NEGATIVE (NEGATIVE); CANNABINOID SCREEN,URINE NEGATIVE (NEGATIVE); COCAINE SCREEN,URINE NEGATIVE (NEGATIVE); OPIATE SCREEN,URINE NEGATIVE (NEGATIVE); PHENCYCLIDINE SCREEN,URINE NEGATIVE (NEGATIVE)
[2022-09-09 13:53] LABS: APPEARANCE,URINE CLEAR (CLEAR); BILIRUBIN,URINE NEGATIVE (NEGATIVE); COLOR,URINE LIGHT-YELLOW (YELLOW); GLUCOSE, URINE (UA) NEGATIVE (NEGATIVE); KETONES,URINE NEGATIVE (NEGATIVE); LEUKOCYTE ESTERASE ,URINE 75 Leu/uL (NEGATIVE); NITRATE,URINE NEGATIVE (NEGATIVE); OCCULT BLOOD,URINE MODERATE (NEGATIVE); PROTEIN,URINE 20 mg/dL (NEGATIVE); UROBILINOGEN,URINE 0.2 mg/dL (0.2-1.0)
[2022-09-09 13:59] LABS: BACTERIA,URINE FEW /HPF (None Seen); MUCUS,URINE MANY LPF (None Seen); RBC,URINE 26-50 /HPF (0-1); SQUAMOUS EPITHELIAL CELL,UR RARE /HPF (0-2)
[2022-09-09 14:12] LABS: BASOPHILS % (AUTO) 1.3 % (0.0-5.0); EOSINOPHILS % (AUTO) 1.3 % (0.0-8.0); HEMATOCRIT 37.2 % (36-48); MEAN CORPUSCULAR HGB CONC 31.5 g/dL (32.0-36.0); MEAN CORPUSCULAR VOLUME 85.7 fL (79-99); MONOCYTES % (AUTO) 6.4 % (3.0-13.0); NEUTROPHILS % (AUTO) 39.8 % (40.0-77.0); PLATELET COUNT (AUTO) 342 K/uL (130-400); RED BLOOD CELL COUNT(AUTO) 4.34 MIL/uL (4.00-5.50); RED CELL DISTRIBUTION WIDTH 13.7 % (11.0-15.5); WHITE BLOOD COUNT (AUTO) 5.5 K/uL (4.8-10.8)
[2022-09-09 14:42] LABS: CREATININE 0.6 mg/dL (0.5-1.5); POTASSIUM 4.3 mmol/L (3.5-5.1)
[2022-09-09 14:44] LABS: ALBUMIN 3.5 g/dL (3.5-5.0); TOTAL PROTEIN, SERUM 7.2 g/dL (6.0-8.3)
== END ==
LOC: EDH 12:55
DX: R10.31 Right lower quadrant pain (principal); Z90.49 Acquired absence of other specified parts of digestive tract
CPT/HCPCS: 36415; 80053; 80305; 81001; 81025; 83605; 83690; 84484; 85025; 87088; 93005

== ENCOUNTER 2024-03-23 22:23 | Emergency (ER) | payer MEDICAID ==
[~2024-03-23] VITALS: Ht 154.9 cm; Wt 50.8 kg
[~2024-03-23 22:23] MED LIST changes: -0.9%NACL 1000ML 1,000 ML IV ONE; -KETOROLAC 15MG/ML VIAL (15MG/ML) IV ONE; -NAPR-1023 PO; +NAPR-1194 PO
--- NOTE | 2024-03-23 23:17 | NUR ---
PT CARE ASSUMED AT THIS TIME
--- NOTE | 2024-03-23 23:25 | ERN ---
ED Note History of Present Illness Stated Complaint: LIP FILLER REACTION Chief Complaint: Other Problems Time Seen by MD: 22:46 Dictation: This is a 33-year-old female who came into the ER for a possible reaction to a lip filler. Patient apparently went to [place] and had a cosmetic procedure with filling of the lips with hyaluronic acid yesterday. Her lips were plump and she sent a picture of her lips to the cosmetic surgeon who was concerned and recommended to be evaluated for a reaction. She denied any itching of the lips, shortness of breath sensation of throat closing up stridor. Temperature 98 pulse 67 respirations 16 blood pressure 143/90 with a pulse oximetry of 100% on room air She has had a history of appy and gastric sleeve surgery in 2020 with significant weight loss Allergies: Coded Allergies: No Known Drug Allergies (Unverified Allergy, Unknown, 11/23/14) Home Meds Active Scripts Loperamide HCl (Loperamide) 2 Mg Capsule, 2 MG PO QID for LOOSE STOOL, #30 CAP Prov:SELWYN QUINONEZ MD 08/10/21 Naproxen (Naproxen) 500 Mg Tablet, 500 MG PO BID PRN for PAIN LEVEL 1 TO 5 for 15 Days, #30 TAB 0 Refills Prov:SELWYN QUINONEZ MD 09/19/20 Reported Medications Vit/Iron Fumarate/FA ( Tablet) 1 Each Tablet, 1 EACH PO HS, TAB 08/27/20 Past Medical History Past Medical History: No Pertinent History, Anemia Surgical History: Appendectomy, Bariatric Surgery Surgical History Other: GASTRIC SLEEVE 2020 Family History: Negative Social History: Negative, Lives with family History: Not Applicable LMP: Mar 07, 2024 : 7 Para: 6 Aborts: 1 Review of System Dictation As described in the history of present illness Constitutional: Negative for fever,chills, and weight loss Eyes: Negative for injury, pain,redness, and discharge ENT: Negative for injury,pain or swelling Cardiovascular: Negative for chest pain, palpitations, and edema Respiratory: Negative for shortness of breath, cough, and wheezing, Abdomen/GI: Negative for abdominal pain, nausea, vomiting, diarrhea, and constipation Back: Negative for injury and pain : Negative for injury, bleeding and discharge MS/Extremity: Negative for injury and deformity Skin: Negative for rash, and discoloration Neuro: Negative for headache, weakness, numbness, tingling, and seizure Psych: Negative for suicide ideation, homicidal ideation, and hallucinations Initial Vital Sign VS Vital Signs Date Time Temp Pulse Resp B/P (MAP) Pulse Ox O2 Delivery O2 Flow Rate FiO2 03/23/24 22:24 98.1 67 16 143/90 100 Room Air 03/23/24 23:26 0 21 Physical Exam Dictation General: awake, alert, NAD Head/Face: Normocephalic, atraumatic Eyes: PERRL, EOMI, vision at baseline ENT: oral cavity clear, TMs clear, no signs of infection lips do not look any swollen than what they normally look after a lip filler there was minimal erythema. Neck: Trachea midline, supple, no nuchal rigidity Cardiovascular: RRR, normal S1/S2, No MRGs, no JVD Respiratory: CTAB, no respiratory distress, No rales or wheezes Abdomen: Soft, non-tender, non-distended, normal bowel sounds, no guarding or rebound. Skin: Warm, dry, normal turgor, no rash MS/Extremity: Pulses equal, no cyanosis, neurovascular intact, FROM Neuro: COAx4, GCS 15, strength 5/5, CN 2-12 intact, normal cerebellar exam, normal gait, Psych: Normal behavior, mood, and affect normal Extremities-trace edema without any palpable cords, Homans sign is negative ED Course ED Course Orders Procedure Category Date Status Time Methylprednisolone PHA 03/24/24 Complete Succ 40mg (Solu-Medro 00:00 Diphenhydramine Hcl PHA 03/24/24 Complete (Benadryl Inj) 00:00 Current Medications Medications (Trade) Dose Ordered Sig/Rosemary Route PRN Reason Start Time Stop Time Status Last Admin Dose Admin Diphenhydramine HCl (BENAdryl INJ) 25 mg ONCE ONCE IM 03/24/24 00:00 03/24/24 00:01 DC 03/23/24 23:46 Methylprednisolone Sodium Succinate (Solu-medROL 40MG) 40 mg ONCE ONCE IM 03/24/24 00:00 03/24/24 00:01 DC 03/23/24 23:45 Vital Signs Date Time Temp Pulse Resp B/P (MAP) Pulse Ox O2 Delivery O2 Flow Rate FiO2 03/24/24 00:20 98.1 60 16 106/75 100 Room Air* 0 21 03/23/24 23:26 98.1 67 16 112/66 100 Room Air* 0 21 03/23/24 22:24 98.1 67 16 143/90 100 Room Air Trial of Benadryl steroid and clinical monitoring. She responded very well and feels much better and also for this reassured. She will follow up with her cosmetic surgeon . Medical Decision Making MDM MDM: Differential diagnosis: Postprocedure inflammatory reaction, true allergic reaction with angioedema Rationale: Tests considered and ordered secondary to shared decision making include: Previous outside records reviewed: Old ER visits. Risk of complication and/or morbidity or mortality of patient management: None Medications-Per medication reconciliation Need for hospitalization: Patient does not meet criteria for hospitalization. Need for emergency major/minor surgery: No There are no social concerns with this patient. Prescription drug management Prescriptions will include symptomatic care Patient's prior external medical records from other ER visits were reviewed by me as indicated. Prior testing and results from previous visits were reviewed. Prior tests were taken into account with medical decision making and resource utilization, independent historian/historians were used to obtain complete medical history. I independently interpreted the test that were performed, results were reviewed by me and considered findings on radiology if ordered. Medical management and examination interpretation discussions were had by me with other qualified healthcare professionals as indicated for the patient's care. Problem List Problem List: (1) Allergic reaction (2) Lip edema DX & DISP Disposition: Discharge Departure Impression: Primary Impression: Allergic reaction Additional Impression: Lip edema Condition: Stable Additional Instructions: Patient and the caregiver have been informed of all the diagnostic tests and the imaging conducted during the today's visit to the emergency room and has verb alized understanding of the results I have personally reviewed and interpreted all diagnostic exams performed here in the ER today as well as the vital signs documented by the nursing staff. The patient is now being discharged to home and should follow up with the primary care physician or the specialist as directed by the ER staff. Follow-up with primary care provider in 1 to 2 days. Take medications as directed here in the emergency room. Okay to continue home medications unless otherwise discussed during your visit in the emergency room today. Return to your nearest emergency room if symptoms worsen or if there is no improvement. Call 911 if you need immediate assistance. Take Tylenol or Motrin [id number] as needed and if no contraindications are present. Increase oral hydration. A wound culture or urine culture was ordered here in the emergency room department please follow-up with primary care provider and advise them to get repeat ports from our facility. If you had any Miguel wrap/splints that were applied here, please do not remove them until you see your primary care or specialty. Patient already has methylprednisolone pack. And she will take [id number] Benadryl 25-50 mg every 6 hours as needed Referrals: KAYLAH MERCADO MD (PCP) ARTEMIO SCHAFER MD Mar 23, 2024 23:25
[2024-03-23] MEDS: Solu-medROL 40MG VIAL IM ONE (23:45)
[2024-03-23] MEDS: DiphenhydrAMINE HCL 50 MG/ML VIAL IM ONE (23:46)
[2024-03-24 00:20] VITALS: BP 106/75; PULSE 60; RESP 16; TEMP 98; O2SAT 100
== END 2024-03-24 00:25 | disposition home or self-care (01) ==
LOC: EDH 22:23
DX: T78.40XA Allergy, unspecified, initial encounter (principal); R60.0 Localized edema; Z90.49 Acquired absence of other specified parts of digestive tract; Z98.84 Bariatric surgery status; X58.XXXA Exposure to other specified factors, initial encounter
CPT/HCPCS: 99284; 96372 ×2; J2919; J1200

== ENCOUNTER 2024-07-19 21:41 | Emergency (ER) | payer BC, MEDICAID ==
[~2024-07-19] VITALS: Ht 162.6 cm; Wt 49.9 kg
[2024-07-19] MEDS: ondanSETRON ODT 4MG TAB SL ONE (21:51)
--- NOTE | 2024-07-19 23:30 | ERN ---
General Chief Complaint: Headache Stated Complaint: HEADACHE, VOMITING Time Seen by MD: 22:38 Source: patient History of Present Illness Initial Comments 33 year old female with a history of gastric bypass surgery she states it when she over eats she does get a headache. This time it feels different in his has been accompanied by nausea and vomiting and diarrhea. She does not think she is . She has an IUD and is menstruating. She is not sure about urinary tract symptoms either. She does say she could be dehydrated but she has not been able to keep anything down because of unremitting emesis. Timing/Duration: 1-3 hours Allergies: Coded Allergies: No Known Drug Allergies (Unverified Allergy, Unknown, 11/23/14) Home Meds Active Scripts Loperamide HCl (Loperamide) 2 Mg Capsule, 2 MG PO QID for LOOSE STOOL, #30 CAP Prov:SELWYN QUINONEZ MD 08/10/21 Naproxen (Naproxen) 500 Mg Tablet, 500 MG PO BID PRN for PAIN LEVEL 1 TO 5 for 15 Days, #30 TAB 0 Refills Prov:SELWYN QUINONEZ MD 09/19/20 Reported Medications Vit/Iron Fumarate/FA ( Tablet) 1 Each Tablet, 1 EACH PO HS, TAB 08/27/20 Past Medical History Past Medical History: No Pertinent History Past Surgical History: Appendectomy, Other Surgical History Other: GASTRIC SLEEVE Family History Family History: Negative Social History Social History: Negative, Lives with family Female( History) History: Not Applicable LMP: Jul 19, 2024 : 7 Para: 6 Aborts: 1 Constitutional: (-) chills, (-) diaphoresis, (-) fever, (-) malaise, (-) weakness, (-) other documentation Respiratory: (-) cough, (-) orthopnea, (-) short of breath, (-) stridor, (-) wheezing, (-) other documentation Cardiovascular: (-) chest pain, (-) edema, (-) palpitations, (-) syncope, (-) dyspnea on exertion, (-) other documentation Gastrointestinal/Abdominal: (+) nausea, (+) vomiting, (+) diarrhea Genitourinary: (-) vaginal discharge, (-) vaginal bleeding, (-) dysuria, (-) frequency, (-) hematuria, (-) pain, (-) other documentation Physical Exam General Appearance: (+) mild distress Orientation: (+) alert, (+) oriented x 3 Head/Face Trauma: No Eye: bilateral eye normal inspection, bilateral eye PERRL, bilateral eye EOMI Ear, Nose, Throat: (+) hearing grossly normal, (+) normal ENT inspection, (+) moist mucous membraine, (+) normal pharynx Neck: (+) normal inspection, (+) supple Respiratory: (+) chest non-tender, (+) lungs clear, (+) well ventilated Heart: (+) regular, (+) no gallop Vascular: (+) no edema Gastrointestinal: (+) soft, (+) non-tender, (+) bowel sound present Results Laboratory and Microbiology Lab and Micro Result Laboratory Tests Test 07/19/24 23:40 White Blood Count 6.1 K/uL (4.8-10.8) Red Blood Count 3.63 MIL/uL (4.00-5.50) L Hemoglobin 8.4 g/dL (12.0-16.0) L Hematocrit 27.4 % (36-48) L Mean Corpuscular Volume 75.5 fL (79-99) L Mean Corpuscular Hemoglobin 23.1 pg (27.0-33.0) L Mean Corpuscular Hemoglobin Concent 30.7 g/dL (32.0-36.0) L Red Cell Distribution Width 15.6 % (11.0-15.5) H Platelet Count 356 K/uL (130-400) Mean Platelet Volume 8.9 fL (7.5-10.5) Immature Granulocyte % (Auto) 0.2 % (0-1) Neutrophils (%) (Auto) 51.8 % (40.0-77.0) Lymphocytes (%) (Auto) 38.8 % (21.0-51.0) Monocytes (%) (Auto) 6.4 % (3.0-13.0) Eosinophils (%) (Auto) 2.1 % (0.0-8.0) Basophils (%) (Auto) 0.7 % (0.0-5.0) Neutrophils # (Auto) 3.1 K/uL (1.8-7.7) Lymphocytes # (Auto) 2.4 K/uL (1.0-4.8) Monocytes # (Auto) 0.4 K/uL (0.1-1.0) Eosinophils # (Auto) 0.13 K/uL (0.00-0.70) Basophils # (Auto) 0.04 K/uL (0.00-0.20) Absolute Immature Granulocyte (auto 0.01 K/uL (0-1) Nucleated Red Blood Cells 0.0 % (0.0-0.19) Sodium Level 137 mmol/L (136-145) Potassium Level 3.8 mmol/L (3.5-5.1) Chloride Level 108 mmol/L (101-111) Carbon Dioxide Level 24 mmol/L (21-32) Blood Urea Nitrogen 11 mg/dL (7-18) Creatinine 0.7 mg/dL (0.5-1.0) Glomerular Filtration Rate Calc 116 mL/min (>90) Random Glucose 103 mg/dL (70-105) Total Calcium 8.6 mg/dL (8.5-10.1) MDM I will start with the usual workup for symptom complex like this, with CBC BMP urine analysis fluid urine . Patient's CBC is normal patient's chemistry panel is normal she feels better now and she would like to go home. I agree with that I trust her when she says she does not have the symptoms of a urinary tract infection. ED Course Orders Procedure Category Date Status Time Ondansetron Odt 4mg PHA 07/19/24 Complete Tab (Zofran 4mg Odt) 22:00 Lactated Ringers PHA 07/19/24 Complete 1000ml (Lactated 23:11 Ketorolac PHA 07/19/24 Complete Tromethamine 30mg/Ml 23:30 Cyclobenzaprine Hcl PHA 07/19/24 Complete (Cyclobenzaprine Hcl 23:30 Cbc With Differential LAB 07/19/24 In Process 23:11 ,Urine Test LAB 07/19/24 Logged 23:11 Urinalysis Profile LAB 07/19/24 Logged 23:11 Basic Metabolic Panel LAB 07/19/24 Complete 23:11 Current Medications Medications (Trade) Dose Ordered Sig/Rosemary Route PRN Reason Start Time Stop Time Status Last Admin Dose Admin Cyclobenzaprine HCl (Cyclobenzaprine HCl) 10 mg ONCE ONCE PO 07/19/24 23:30 07/19/24 23:31 DC Ketorolac Tromethamine (toRADol) 30 mg ONCE ONCE IVP 07/19/24 23:30 07/19/24 23:31 DC Lactated Ringer's (Lactated Ringers 1000ml) 1,000 ml BOLUS STAT IV 07/19/24 23:11 07/19/24 23:14 DC Ondansetron HCl (zoFRAN 4MG ODT) 4 mg ONCE ONCE SL 07/19/24 22:00 07/19/24 22:01 DC 07/19/24 21:51 Vital Signs Date Time Temp Pulse Resp B/P (MAP) Pulse Ox O2 Delivery O2 Flow Rate FiO2 07/19/24 23:35 57 19 100/68 100 Room Air* 0 21 07/19/24 21:43 98.4 90 18 122/92 99 Room Air 0 DX & DISP Disposition: Discharge Departure Impression: Primary Impression: Dehydration Condition: Stable Additional Instructions: Your white blood cell count is normal your chemistry panel is normal. I do have low suspicion for a urinary tract infection. It may truly be that your simply dehydrated. If you start to have symptoms of a urinary tract infection please call your primary care physician for a prescription. In the meantime stay well hydrated. You can drink even while you are having emesis to help stay hydrated. Referrals: KAYLAH MERCADO MD (PCP) JONNA TONEY MD Jul 19, 2024 23:30
[2024-07-19 23:55] LABS: BASOPHILS # (AUTO) 0.04 K/uL (0.00-0.20); BASOPHILS % (AUTO) 0.7 % (0.0-5.0); EOSINOPHILS # (AUTO) 0.13 K/uL (0.00-0.70); EOSINOPHILS % (AUTO) 2.1 % (0.0-8.0); HEMATOCRIT 27.4 % (36-48); IMMATURE GRANULOCYTE ABSOLUTE 0.01 K/uL (0-1); LYMPHOCYTES # (AUTO) 2.4 K/uL (1.0-4.8); LYMPHOCYTES % (AUTO) 38.8 % (21.0-51.0); MEAN CORPUSCULAR HEMOGLOBIN 23.1 pg (27.0-33.0); MEAN CORPUSCULAR HGB CONC 30.7 g/dL (32.0-36.0); MEAN CORPUSCULAR VOLUME 75.5 fL (79-99); MONOCYTES # (AUTO) 0.4 K/uL (0.1-1.0); MONOCYTES % (AUTO) 6.4 % (3.0-13.0); NEUTROPHILS # (AUTO) 3.1 K/uL (1.8-7.7); NEUTROPHILS % (AUTO) 51.8 % (40.0-77.0); PLATELET COUNT (AUTO) 356 K/uL (130-400); RED BLOOD CELL COUNT(AUTO) 3.63 MIL/uL (4.00-5.50); RED CELL DISTRIBUTION WIDTH 15.6 % (11.0-15.5); WHITE BLOOD COUNT (AUTO) 6.1 K/uL (4.8-10.8)
[2024-07-20 00:02] LABS: POTASSIUM 3.8 mmol/L (3.5-5.1)
[2024-07-20 00:03] LABS: CREATININE 0.7 mg/dL (0.5-1.0)
--- NOTE | 2024-07-20 00:10 | NUR ---
PATIENT VERBALIZED WANTING TO WAIT FOR LAB WORK TO RESULT BEFORE TAKING ANY MEDICATIONS. PRIMARY RN VERBALIZED UNDERSTANDING AT THIS TIME./FLOYD
--- NOTE | 2024-07-20 00:23 | NUR ---
PATIENT LABS RESULTED AND EXPLAINED TO PATIENT AT THIS TIME, PATIENT VERBALIZED FEELING BETTER AND NOT WANTING ANY MEDICATIONS AT THIS TIME. ED MD AWARE./FLOYD
[2024-07-20 00:27] VITALS: BP 98/69; PULSE 64; RESP 19; TEMP 98.3; O2SAT 100
[2024-07-20] MEDS: LACTATED RINGERS 1000ML IV STA (00:31)
[2024-07-20] MEDS: ketOROlac 30MG VIAL (30MG/ML) IVP ONE (00:31)
[2024-07-20] MEDS: CYCLOBENZAPRINE HCL 10 MG TABLET PO ONE (00:32)
== END 2024-07-20 00:32 | disposition home or self-care (01) ==
LOC: EDH 21:41
DX: E86.0 Dehydration (principal); Z79.899 Other long term (current) drug therapy; Z90.49 Acquired absence of other specified parts of digestive tract; Z98.84 Bariatric surgery status
CPT/HCPCS: 36415; 80048; 85025; 99283